=== PATIENT | female | born 1995 | race Caucasian/White ===

== ENCOUNTER 2018-02-28 19:18 | Emergency (ER) | payer BC ==
[2018-02-28] MEDS ORDERED: Acetaminophen 500 MG TAB ONE (19:59)
--- NOTE | 2018-02-28 20:04 | RAD ---
TWO VIEWS OF THE LEFT FOREARM: 02/28/18 COMPARISON: None. HISTORY: Left elbow and forearm pain after a fall. FINDINGS: Two views of the left forearm shows no evidence of acute fracture or dislocation. No soft tissue swel ling is seen. No degenerative changes are present. IMPRESSION: Unremarkable exam. POS: [facility]
--- NOTE | 2018-02-28 20:05 | RAD ---
FOUR VIEWS OF THE LEFT ELBOW: 01/28/18 COMPARISON: None. HISTORY: Left elbow pain after slipping and falling and landing on elbow. FINDINGS: Four views left elbow shows no evidence of acute fracture or dislocation. No elbow effusion is seen. No degenerative changes are present. IMPRESSION: Unremarkable exam. POS: [facility]
== END 2018-02-28 20:28 | disposition home or self-care (01) ==
LOC: SCSER 19:18
DX: S50.02XA Contusion of left elbow, initial encounter (principal); W01.0XXA Fall on same level from slipping, tripping and stumbling without subsequent striking against object, initial encounter